=== PATIENT | male | born 1990 | race Caucasian/White ===

== ENCOUNTER 2019-03-22 09:12 | Emergency (ER) | payer OTHER ==
[~2019-03-22] VITALS: Ht 182.9 cm; Wt 65.8 kg
[2019-03-22] MEDS ORDERED: Bactrim Ds Tab1 EACH PO (10:29)
[2019-03-22] MEDS ORDERED: Keflex500 MG PO (10:29)
[2019-03-22] MEDS ORDERED: Zofran8 MG PO (10:29)
== END 2019-03-22 10:45 | disposition home or self-care (01) ==
LOC: ER 09:12 → EDBD 09:12 → ER 10:45
DX: J32.9 Chronic sinusitis, unspecified (principal); L98.8 Other specified disorders of the skin and subcutaneous tissue; F17.200 Nicotine dependence, unspecified, uncomplicated
CPT/HCPCS: 99282